=== PATIENT | female | born 1955 | race Caucasian/White ===

== ENCOUNTER 2019-09-04 02:23 | Emergency (ER) | payer OTHER, BC ==
[~2019-09-04] VITALS: Ht 154.9 cm; Wt 57.2 kg
[2019-09-04 02:33] VITALS: Ht 154.9 cm; Wt 57.2 kg
[2019-09-04 06:11] VITALS: BP 163/69
== END 2019-09-04 06:11 | disposition home or self-care (01) ==
LOC: ED 02:23
DX: S01.01XA Laceration without foreign body of scalp, initial encounter (principal); W19.XXXA Unspecified fall, initial encounter; Y93.89 Activity, other specified; Y92.89 Other specified places as the place of occurrence of the external cause; Y99.8 Other external cause status
CPT/HCPCS: 90715; J2001